=== PATIENT | male | born 1975 | race Caucasian/White ===

== ENCOUNTER 2017-05-06 15:18 | Emergency (ER) | payer MEDICAID ==
[~2017-05-06] VITALS: Ht 185.4 cm; Wt 93.0 kg
[2017-05-06 15:28] VITALS: BP_SYST 149
[2017-05-06] MEDS ORDERED: DIPHENHYDRAMINE INJ 50 MG/ML VIAL IVP ONE ×2 (16:00→17:45)
[2017-05-06] MEDS ORDERED: VANCOMYCIN HCL 1,000 MG in NS 250 ML IV ONE (16:00)
[2017-05-06] MEDS ORDERED: VANCOMYCIN HCL 1000 MG/VIAL IV ONE (16:15)
[2017-05-06 18:42] VITALS: BP_SYST 132
== END 2017-05-06 18:42 | disposition home or self-care (01) ==
LOC: SED 15:18
DX: L03.113 Cellulitis of right upper limb (principal)
CPT/HCPCS: 36415; 87040; 96365; 96366; 96375; 96376; 99285; J1200; J3370; J7050